=== PATIENT | female | born 2000 | race Caucasian/White ===

== ENCOUNTER 2024-01-05 10:50 | Emergency (ER) | payer SELFPAY ==
[~2024-01-05] VITALS: Ht 172.7 cm; Wt 113.0 kg
[2024-01-05 11:14] VITALS: BP 124/80; PULSE 89; RESP 18; TEMP 98.4; O2SAT 100
[2024-01-05 11:35] LABS: Urine Bacteria None Seen /hpf (None Seen)
[2024-01-05 11:52] LABS: Urine Blood 3+ /uL (Negative); Urine Clarity Turbid (Clear); Urine Color Light-Orange (Yellow); Urine Mucus FEW (None Seen); Urine Protein, UAD 1+ (Negative); Urine Specific Gravity 1.025 (1.001-1.035); Urine Urobilinogen Normal (Negative); Urine WBC 190 /hpf (0 - 5)
[2024-01-05] MEDS: cefTRIAXone SOD 1,000 MG VL IM ONE (12:08)
[2024-01-05] MEDS ORDERED: BACDST PO (12:16)
[2024-01-05] MEDS ORDERED: IBUP-1456 PO (12:16)
== END 2024-01-05 12:20 | disposition home or self-care (01) ==
LOC: ER 10:50
DX: N39.0 Urinary tract infection, site not specified (principal); Z79.1 Long term (current) use of non-steroidal anti-inflammatories (NSAID); Z79.899 Other long term (current) drug therapy; Z88.1 Allergy status to other antibiotic agents
CPT/HCPCS: 81001; 81025; 96372; 99283; J0696

== ENCOUNTER 2024-01-18 10:01 | Emergency (ER) | payer SELFPAY ==
[~2024-01-18] VITALS: Ht 172.7 cm; Wt 116.1 kg
[~2024-01-18 10:01] MED LIST: BACDST PO; IBUP-1456 PO
[2024-01-18 11:25] VITALS: BP 117/82; PULSE 114; RESP 16; TEMP 99.5; O2SAT 98
[2024-01-18] MEDS: cefTRIAXone SOD 1,000 MG VL IM ONE (11:45)
[2024-01-18] MEDS ORDERED: CEPH500C PO (11:51)
[2024-01-18] MEDS ORDERED: PROM1SOL4 PO (11:51)
== END 2024-01-18 12:04 | disposition home or self-care (01) ==
LOC: ER 10:01
DX: H66.93 Otitis media, unspecified, bilateral (principal); J03.90 Acute tonsillitis, unspecified; Z88.1 Allergy status to other antibiotic agents
CPT/HCPCS: 71045; 96372; 99283; J0696

== ENCOUNTER 2024-01-26 09:58 | Emergency (ER) | payer SELFPAY ==
[~2024-01-26] VITALS: Ht 172.7 cm; Wt 106.9 kg
[~2024-01-26 09:58] MED LIST changes: +CEPH500C PO; +PROM1SOL4 PO
[2024-01-26 11:07] LABS: Basophils # (auto) 0 10 ^3/uL (0-0.2); Basophils % (auto) 0.1 % (0.0-2.0); Eosinophils # (auto) 0.4 10 ^3/uL (0-0.8); Eosinophils % (auto) 3.6 % (0.0-7.0); Hematocrit 41.4 % (36.0-46.0); Hemoglobin 13.1 g/dL (12.2-16.2); Lymphocytes # (auto) 1.4 10 ^3/uL (0.4-5.4); Lymphocytes % (auto) 11.5 % (10.0-50.0); Mean Corpuscular Hemoglobin 25.4 pg (28.0-32.0); Mean Corpuscular Hgb Conc. 31.7 g/dL (32.0-36.0); Monocytes # (auto) 0.5 10 ^3/uL (0-1.3); Monocytes % (auto) 4.4 % (0.0-12.0); Neutrophils # (auto) 9.7 10 ^3/uL (1.6-8.6); Neutrophils % (auto) 80.4 % (37.0-80.0); Nucleated Red Blood Cells % 0.1 %; Red Blood Cells 5.17 10^6/uL (4.0-5.20); Red Cell Distribution Width 15.9 % (11.8-14.3)
[2024-01-26 11:35] LABS: Alanine Aminotransferase 21 U/L (7-40); Albumin 4.4 g/dL (3.2-4.8); Alkaline Phosphatase 79 U/L (46-116); Anion Gap 7 (5-15); Aspartate Aminotransferase 20 U/L (13-40); BUN/Creatinine Ratio 14.5 (10.0-20.0); Blood Urea Nitrogen 16 mg/dL (9-23); Calcium 9.8 mg/dL (8.7-10.4); Carbon Dioxide 29 mmol/L (20-30); Chloride 103 mmol/L (98-107); Glucose 111 mg/dL (74-106); Lipase 27 U/L (12-53); Magnesium 2.2 mg/dL (1.6-2.6); Potassium 3.8 mmol/L (3.5-5.1); Sodium 139 mmol/L (136-145)
[2024-01-26 11:36] LABS: Bilirubin, Total 0.5 mg/dL (0.2-1.0); Total Protein 7.6 g/dL (5.7-8.2)
[2024-01-26 11:46] LABS: Urine Bacteria FEW /hpf (None Seen); Urine Blood 2+ /uL (Negative); Urine Clarity Turbid (Clear); Urine Color Light-Orange (Yellow); Urine Protein, UAD 1+ (Negative); Urine Specific Gravity 1.021 (1.001-1.035); Urine Urobilinogen Normal (Negative); Urine WBC 122 /hpf (0 - 5)
[2024-01-26] MEDS ORDERED: CIPR-173 PO (11:57)
[2024-01-26 12:48] VITALS: BP 134/86; PULSE 86; RESP 17; TEMP 97.7; O2SAT 97
[2024-01-26] MEDS ORDERED: ZOFR4T PO (13:11)
== END 2024-01-26 12:51 | disposition home or self-care (01) ==
LOC: ER 09:58
DX: N39.0 Urinary tract infection, site not specified (principal); Z88.1 Allergy status to other antibiotic agents; Z79.899 Other long term (current) drug therapy
CPT/HCPCS: 36415; 80053; 81001; 83690; 83735; 85025